=== PATIENT | female | born 1975 | race Caucasian/White ===

== ENCOUNTER 2017-12-06 19:12 | Emergency (ER) | payer OTHER, SELFPAY ==
[2017-12-06 19:38] VITALS: BP 148/81; PULSE 89; RESP 20; TEMP 36.8; O2SAT 99; BMI 19.3
[2017-12-06 19:45] LABS: Apearance,Urine Clear (Clear); Color,Urine Yellow (Yellow)
[2017-12-06 19:46] LABS: Bilirubin,Urine Negative (Negative); Blood, Urine Negative (Negative); Glucose,Urine (UA) Negative (Negative); Ketones,Urine Negative (Negative); PH,Urine 6.5 (5.0-8.5); Protein,Urine Negative (Negative)
[2017-12-06 19:47] LABS: UTC Leukocyte Esterase,Urine 1+ (Negative); UTC Nitrate,Urine Negative (Negative); Urobilinogen,Urine 0.2 EU/dl (0.2)
--- NOTE | 2017-12-06 20:07 | HMH.EDUTC ---
[facility] [place] Disposition Clinical Impression: Viral upper respiratory illness, Urinary frequency, History of UTI Disposition: Home, Self-Care Condition on Discharge: Good Instructions: DI for Viral Upper Respiratory Infection -- Adult Additional Instructions: * No sign of bacterial infection. Fluid likely remaining from ear infection. Takes times to resolve completely. no sign of infection in there though. * Monitor Temp. FU if fever develops * Urine dip unremarkable. With your history, we will send culture to rule out infection. Be sure to follow up on results. * Continue LOTS of water. Follow up immediately for worsening urine symptoms, fever, aches, back pain, Nausea, vomiting. Otherwise in 48-72 hours on your urine culture. If negative and still having symptoms, see primary care. If positive you will need an antibiotic. * sleep elevated * humidifier/vaporizer * flonase 2 sprays each nostril daily but may take 2-3 days to notice improvement with it. * Start antihistamine of your choice Referrals: Sebastian Sandhu MD [Primary Care Provider] - (In 48-72 hours for urine culture results and IMMEDIATELY for new or worsening symptoms OR no noticeable improvement over the next 5-7 days. 911 for difficulty breathing or swallowing. ) Time of Disposition: 21:13 Medical Decision Making Vital Signs: 12/06/17 19:38 Temperature 98.2 F Temperature Source Temporal Artery Scan Pulse Rate [Right] 89 Respiratory Rate 20 Blood Pressure [Right Arm] 148/81 Blood Pressure Mean [Right Arm] 103 Blood Pressure Source [Right Arm] Automatic Cuff Blood Pressure Position [Right Arm] Sitting 02 Sat by Pulse Oximetry 99 Oxygen Delivery Method Room Air - Lab Data Lab results reviewed: Yes: I reviewed the patient's lab results. Lab Results 12/06/17 19:35: Urine Color Yellow, Urine Appearance Clear, Urine pH 6.5, Ur Specific [place] 1.010, Urine Protein Negative, Urine Glucose (UA) Negative, Urine Ketones Negative, Urine Blood Negative, Urine Nitrate Negative, Urine Bilirubin Negative, Urine Urobilinogen 0.2, Ur Leukocyte Esterase 1+ A Orders (Tests/Meds): ORDERS Category Date Time Status Urine Culture Stat Micro 12/06/17 21:05 Received - Amando Inquiry Pt receiving controlled substance: No [facility] [place] HPI - General Stated complaint: Possible Respiratory Infection & UTI Time Seen by Provider: 12/06/17 20:07 Mode of Arrival: Ambulatory Source of Information: Patient Limitations: No Limitations Description of Symptoms (Recalled from Triage Doc. by RN): EAR ACHE, DYSURIA HEENT Symptoms (Recalled from RN notes): Yes Resp Symptoms (Recalled from RN notes): No Skin Symptoms (Recalled from RN notes): No MS Symptoms (Recalled from RN notes): No Functional Status (Recalled from RN notes): N - History of Present Illness Provider Complaint: c/o melody ear pressure and urinary frequency. Ear pressure ongoing. Started 2-3 weeks ago. Dx OM but not sure if one ear or both. Completed augmentin. Ongoing pressure. Hasn't taken or tried anything else. Also c/o urinary frequency x 3-5 days. Hx of UTIs. Bladder pressure at times. 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 Symptoms unchanged since then. Worried about a UTI. No treatment before arrival. - Related Data Home Medications Medication Instructions Recorded Confirmed No Known Home Medications [No 12/06/17 12/06/17 Known Home Medications] Allergies Allergy/AdvReac Type Severity Reaction Status Date / Time No Known Allergies Allergy Verified 12/06/17 19:42 - Worker's Comp Is this a Worker's Comp case?: No [facility] History I have reviewed the patient's past medical history: Yes (denies PMHx) Other Surgeries: Yes: Tubal Ligation, Other (urethral dilation 1981 and 2013) - *Social History Smoking Status: Current every day smoker Tobacco Type: cigarettes Alcohol Intake: never - Psychiatric History Expresses thoughts of
== END 2017-12-06 21:14 | disposition home or self-care (01) ==
PROVIDERS: Emergency Provider Nurse Practitioner Family; Family Provider Family Medicine; PCP Family Medicine
DX: J06.9 Acute upper respiratory infection, unspecified (principal); R30.0 Dysuria; H92.03 Otalgia, bilateral; F17.210 Nicotine dependence, cigarettes, uncomplicated
CPT/HCPCS: 81003; 87086; 87088; 87186; 99201

== ENCOUNTER 2017-12-09 15:33 | Outpatient (CLI) | payer OTHER, SELFPAY ==
[2017-12-09 16:05] VITALS: BP 133/81; PULSE 90; RESP 18; TEMP 36.7
--- NOTE | 2017-12-09 16:08 | PC.NURSE ---
1605 - INVANZ INFUSION STARTED AT THIS TIME
[2017-12-09 16:35] VITALS: BP 147/77; PULSE 85; RESP 18
== END 2017-12-09 17:00 | disposition home or self-care (01) ==
LOC: INF 15:35
PROVIDERS: PCP Family Medicine; Visit Provider Family Medicine
DX: N39.0 Urinary tract infection, site not specified (principal); Z16.24 Resistance to multiple antibiotics
CPT/HCPCS: 96365; J1335

== ENCOUNTER 2017-12-10 15:12 | Outpatient (CLI) | payer OTHER, SELFPAY ==
[2017-12-10 15:05] VITALS: BP 141/65; PULSE 75; RESP 18; TEMP 36.7; O2SAT 97
[2017-12-10 15:25] VITALS: BMI 18.8
[2017-12-10 16:12] VITALS: BP 124/76; PULSE 66; RESP 18; TEMP 36.7; O2SAT 97
== END 2017-12-10 16:16 | disposition home or self-care (01) ==
LOC: INF 15:13
PROVIDERS: Family Provider Family Medicine; PCP Family Medicine; Visit Provider Family Medicine
DX: N39.0 Urinary tract infection, site not specified (principal); Z16.24 Resistance to multiple antibiotics
CPT/HCPCS: 96365; J1335

== ENCOUNTER 2017-12-11 14:54 | Outpatient (CLI) | payer OTHER, SELFPAY ==
[2017-12-11 15:20] VITALS: BP 122/76; PULSE 90; RESP 16; TEMP 36.7; O2SAT 99; BMI 18.4
[2017-12-11 16:05] VITALS: BP 103/65; PULSE 85; RESP 18; TEMP 36.7; O2SAT 96
== END 2017-12-11 16:05 | disposition home or self-care (01) ==
PROVIDERS: Family Provider Family Medicine; PCP Family Medicine; Visit Provider Family Medicine
DX: N39.0 Urinary tract infection, site not specified (principal); Z16.24 Resistance to multiple antibiotics
CPT/HCPCS: 96365; J1335

== ENCOUNTER 2017-12-12 15:10 | Outpatient (CLI) | payer OTHER, SELFPAY ==
[2017-12-12 15:36] VITALS: BP 112/71; PULSE 84; RESP 20; TEMP 36.7; O2SAT 99
[2017-12-12 15:51] VITALS: BP 115/73; PULSE 86; RESP 20; TEMP 36.7; O2SAT 100
[2017-12-12 16:06] VITALS: BP 117/68; PULSE 84; RESP 20; O2SAT 98
[2017-12-12 16:26] VITALS: BP 116/71; PULSE 81; RESP 18; TEMP 36.7; O2SAT 98
== END 2017-12-12 16:25 | disposition home or self-care (01) ==
LOC: INF 15:31
PROVIDERS: Family Provider Family Medicine; PCP Family Medicine; Visit Provider Family Medicine
DX: N39.0 Urinary tract infection, site not specified (principal); Z16.24 Resistance to multiple antibiotics
CPT/HCPCS: 96365; J1335

== ENCOUNTER 2017-12-13 15:00 | Outpatient (CLI) | payer OTHER, SELFPAY ==
[2017-12-13 15:15] VITALS: BP 122/70; PULSE 66; RESP 20; TEMP 36.9; O2SAT 96
[2017-12-13 16:00] VITALS: BP 109/70; PULSE 66; RESP 20; TEMP 36.7; O2SAT 98
== END 2017-12-13 16:05 | disposition home or self-care (01) ==
LOC: INF 17:09
PROVIDERS: Family Provider Family Medicine; PCP Family Medicine; Visit Provider Family Medicine
DX: N39.0 Urinary tract infection, site not specified (principal); Z16.24 Resistance to multiple antibiotics
CPT/HCPCS: 96365; J1335

== ENCOUNTER 2017-12-14 14:55 | Outpatient (CLI) | payer OTHER, SELFPAY ==
[2017-12-14 15:35] VITALS: BP 109/61; PULSE 75; RESP 18; TEMP 36.5; O2SAT 98
[2017-12-14 15:50] VITALS: BP 105/87; PULSE 89; RESP 20; O2SAT 97
[2017-12-14 16:05] VITALS: BP 114/64; PULSE 85; RESP 20; O2SAT 98
[2017-12-14 16:20] VITALS: BP 111/67; PULSE 84; RESP 20; TEMP 36.6; O2SAT 98
== END 2017-12-14 16:25 | disposition home or self-care (01) ==
LOC: INF 15:01
PROVIDERS: Family Provider Family Medicine; PCP Family Medicine; Visit Provider Family Medicine
DX: N39.0 Urinary tract infection, site not specified (principal); Z16.24 Resistance to multiple antibiotics
CPT/HCPCS: 96365; J1335

== ENCOUNTER 2017-12-15 14:50 | Outpatient (CLI) | payer OTHER, SELFPAY ==
[2017-12-15 15:10] VITALS: BP 101/66; PULSE 76; RESP 18
[2017-12-15 15:45] VITALS: BP 117/69; PULSE 81; RESP 18
== END 2017-12-15 16:05 | disposition home or self-care (01) ==
LOC: INF 15:13
PROVIDERS: Visit Provider Family Medicine
DX: N39.0 Urinary tract infection, site not specified (principal); Z16.24 Resistance to multiple antibiotics
CPT/HCPCS: 96365; J1335

== ENCOUNTER → 2018-01-30 13:45 | Outpatient (CLI) | payer OTHER, SELFPAY ==
[2018-01-30 14:09] LABS: Basophils % 0.2 % (0.1-2.0); Eosinophils # 0.1 K/mm3 (0.0-0.4); Eosinophils % 1.3 % (0.1-12.0); Hematocrit 43.4 % (37.0-47.0); Hemoglobin 14.3 g/dL (12.2-16.2); Lymphocytes # 1.7 K/mm3 (0.7-4.5); Lymphocytes % 24.2 K/mm3 (10-50); Mean Corpuscular Hemoglobin 30.4 pg (27.0-31.2); Mean Platelet Volume 7.9 fl (7.4-10.4); Monocytes # 0.4 K/mm3 (0.1-1.0); Monocytes % 6.2 % (1.7-9.3); Neutrophils # 4.9 K/mm3 (1.8-7.8); Neutrophils % 68.1 % (37.0-80.0); Platelet Count 219 K/mm3 (142-424); Red Blood Count 4.72 M/mm3 (4.20-5.40); Red Cell Distribution Width 12.5 % (11.5-17.5); White Blood Count 7.1 K/mm3 (4.8-10.8)
[2018-01-30 14:49] LABS: Thyroid Stimulating Hormone 1.12 uIU/ml (0.358-3.740)
== END ==
PROVIDERS: Family Provider Family Medicine; PCP Family Medicine; Visit Provider Obstetrics & Gynecology
DX: N93.8 Other specified abnormal uterine and vaginal bleeding (principal)
CPT/HCPCS: 36415; 84443; 85025

== ENCOUNTER → 2018-02-01 09:49 | Outpatient (CLI) | payer OTHER, SELFPAY ==
--- NOTE | 2018-02-01 09:51 | US_ITS ---
US transvaginal HISTORY: ITS.REASON: Dysfunctional Uterine Bleeding ORDERING PHYSICIAN: Kumar Haile MD PATIENT AGE: 43 years COMPARISON: None FINDINGS: Uterus is retroverted measuring 8 x 5 x 6 cm with a combined endometrial thickness of 5 mm. No uterine mass evident. The left ovary is 3 x 1.7 cm containing multiple follicles largest at 1 cm. Vascularity is prominent in the left adnexa. The right ovary is 3 x 1.8 cm and contains a small follicle. There is a small amount of cul-de-sac fluid. IMPRESSION: Retroverted uterus. Small bilateral ovarian follicles with a 1 cm cyst on the left and small amount of cul-de-sac fluid
== END ==
PROVIDERS: Family Provider Family Medicine; PCP Family Medicine; Visit Provider Obstetrics & Gynecology
DX: N93.8 Other specified abnormal uterine and vaginal bleeding (principal)
CPT/HCPCS: 76830

== ENCOUNTER → 2019-02-06 12:42 | Outpatient (CLI) | payer OTHER, SELFPAY ==
--- NOTE | 2019-02-06 12:58 | XR_ITS ---
EXAM: XR cervical spine 5V HISTORY: ITS.REASON: CERVICALGIA ORDERING PHYSICIAN: Justina Ayon PATIENT AGE: 44 years COMPARISON: None FINDINGS: Normal alignment. No fracture or dislocation. No lytic or blastic change. No significant degenerative change. The disc spaces are preserved. The oblique films show normal neural foramina bilaterally. The prevertebral soft tissues are normal and the odontoid is normal. IMPRESSION: No acute finding
== END ==
LOC: RAD 12:44
PROVIDERS: PCP Nurse Practitioner Family; Visit Provider Nurse Practitioner Family
DX: M54.2 Cervicalgia (principal)
CPT/HCPCS: 72050

== ENCOUNTER 2019-02-15 08:50 | Outpatient (RCR) | payer OTHER, SELFPAY ==
--- NOTE | 2019-02-15 09:38 | HMH.PTOPEV ---
PT Outpatient Evaluation Rehab PT Outpatient Evaluation Start: 02/15/19 08:56 Freq: Status: Active Protocol: Document 02/15/19 09:21 BRE (Rec: 02/15/19 09:37 BRE [id number]) Electronically Signed By Nagi Lombardi, PT 02/15/19 09:21 Outpatient Therapy Subjective History Subjective History Patient is a 44 year old female presenting to outpatient PT with reports of chronic cervical spine pain radiating to bilateral upper trapezius mm. Pt also complians of intermittent cervicogenic headaches. Most recent cervical spine diagnostics negative. No specific mechanism of injury to report. No radicular symptoms to report. Hx of previous renal problems, tubal ligation. Chief Complaint Pain Spasms Clicks Symptom Type Throb Symptoms Aggravated By Sitting Physical Activity Prior Functional Limitations None Current Functional Limitations Reaching Lifting Desk Work/Reading Symptom Description Constant but Variable Level of pain today (0-10) 4 Pain scale - at its best (0-10) 2 Pain scale - at its worst (0-10) 7 Cervical Eval Palpation Cervical Muscles R Cervical Paraspinal L Cervical Paraspinal R Suboccipital L Suboccipital R Upper Trapezius L Upper Trapezius Cervical/Thoracic Palpation Findings Tenderness Posture Head/C-Spine Posture Sitting Position Neutral Position Head/C-Spine Posture Standing Position Neutral Position Flexibility Deficits Upper Trapezius Muscle Length (R) Moderate Tightness (L) Moderate Tightness Levaetor Scapulae Muscle Length (R) Moderate Tightness (L) Moderate Tightness Pectoralis Minor Muscle Length (R) Moderate Tightness (L) Moderate Tightness Passive Joint Mobility Cervical PIVM WNL: R OA L OA R AA L AA R C2/3 L C2/3 R C3/
== END 2019-02-15 08:55 | disposition home or self-care (01) ==
LOC: PT 08:50
PROVIDERS: Visit Provider Nurse Practitioner Family
DX: M54.2 Cervicalgia (principal); R51 Headache
CPT/HCPCS: 97010; 97014; 97110; 97163; G0283

== ENCOUNTER → 2019-12-24 16:44 | Outpatient (CLI) | payer OTHER, SELFPAY ==
--- NOTE | 2019-12-24 16:50 | MM_ITS ---
PROCEDURE: MM DIG SCREENING MAMM BI W/CAD CLINICAL INDICATION: SCREENING There is no personal or family history of breast cancer. COMPARISON: None, this is baseline screening exam TECHNIQUE: Standard CC and MLO images and 3D Tomosynthesis was obtained. R2 CAD reviewed. FINDINGS: There is a diffusely dense and heterogenic parenchymal pattern somewhat lessening the sensitivity mammography. The findings are bilateral and symmetrical. Tomosynthesis images are most helpful in this type of breast parenchyma. There is no suspicious lesion in either breast and no suspicious microcalcifications. IMPRESSION: Dense parenchymal pattern with no suspicious lesions seen BI-RAD Category: 2 Benign Finding(s) FOLLOW-UP: 1YR 1 Year Follow-up (A letter has been sent to the patient regarding results of the study.) Dictated by: Dr. James Dillard MD 12/25/2019 10:[address] James Dillard MD in [place] 12/25/2019 10:54
== END ==
PROVIDERS: PCP Family Medicine; Visit Provider Family Medicine
DX: Z12.31 Encounter for screening mammogram for malignant neoplasm of breast (principal)
CPT/HCPCS: 77063; 77067

== ENCOUNTER → 2020-03-15 09:59 | Outpatient (CLI) | payer OTHER, SELFPAY ==
[2020-03-15 10:16] LABS: Basophils % 0.5 % (0.1-2.0); Eosinophils # 0.1 K/mm3 (0.0-0.4); Eosinophils % 1.1 % (0.1-12.0); Hematocrit 46.6 % (37.0-47.0); Hemoglobin 15.1 g/dL (12.2-16.2); Lymphocytes # 1.6 K/mm3 (0.7-4.5); Lymphocytes % 26.2 % (10-50); Mean Corpuscular HGB Conc 32.4 g/dL (31.8-35.4); Mean Corpuscular Hemoglobin 30.4 pg (27.0-31.2); Mean Corpuscular Volume 93.7 fl (81-99); Mean Platelet Volume 7.7 fl (7.4-10.4); Monocytes # 0.4 K/mm3 (0.1-1.0); Monocytes % 7.1 % (1.7-9.3); Neutrophils # 3.9 K/mm3 (1.8-7.8); Platelet Count 239 K/mm3 (142-424); Red Blood Count 4.97 M/mm3 (4.20-5.40); Red Cell Distribution Width 13.5 % (11.5-17.5); White Blood Count 5.9 K/mm3 (4.8-10.8)
[2020-03-15 10:35] LABS: Chloride 104 mmol/L (98-107); Potassium 4.2 mmoL/L (3.5-5.1); Sodium 137 mmol/L (136-145)
[2020-03-15 10:38] LABS: Alanine Aminotransferase 14 U/L (12-78); Albumin Level 4.6 g/dl (3.5-5.0); Albumin/Globulin Ratio 1.6 (1.1-1.8); Alkaline Phosphatase 70 U/L (38-126); Anion Gap 9.2 mEq/L (5-15); Aspartate Amino Transferase 21 U/L (14-36); Bilirubin,Total 0.5 mg/dl (0.2-1.3); Blood Urea Nitrogen 9 mg/dl (7-17); Calcium 9.4 mg/dl (8.4-10.2); Carbon Dioxide 28 mmol/L (22.0-30.0); Chol/HDL Ratio 3.7 (1-3.5); Cholesterol 207 mg/dl (140-200); Estimated Glomerular Filt Rate 134 ml/min (>60); GFR (African American) 162 ML/MIN (>60); Globulin 2.9 g/dL (1.3-3.2); Glucose 101 mg/dl (74-100); HDL Cholesterol 56 mg/dl (40-60); Total Protein,Serum 7.5 g/dl (6.3-8.2); Triglycerides 106 mg/dl (30-150); VLDL Cholesterol 21 mg/dL (0-40)
[2020-03-15 10:49] LABS: Direct LDL Cholesterol 153.01 mg/dL (100-129)
[2020-03-15 10:54] LABS: Triiodothryronine (T3) Uptake 31 % (23.5-40.5)
[2020-03-15 10:55] LABS: Free Thyroxine Index 2.2 ug/dL (5.93-13.13); T4 (Thyroxine) 7.2 ug/dl (5.53-11.0)
[2020-03-15 11:08] LABS: Thyroid Stimulating Hormone 0.94 uIU/mL (0.465-4.68)
== END ==
PROVIDERS: Visit Provider Nurse Practitioner Obstetrics & Gynecology
DX: Z01.419 Encounter for gynecological examination (general) (routine) without abnormal findings (principal); R53.82 Chronic fatigue, unspecified
CPT/HCPCS: 36415; 80053; 80061; 84436; 84443; 84479; 85025

== ENCOUNTER 2020-03-30 16:57 | Emergency (ER) | payer OTHER, SELFPAY ==
[2020-03-30 17:10] VITALS: BP 132/83; PULSE 93; RESP 18; TEMP 37; O2SAT 98; BMI 18.3
[2020-03-30 17:12] LABS: Apearance,Urine Clear (Clear); Bilirubin,Urine Negative (Negative); Blood, Urine Trace (Negative); Color,Urine Yellow (Yellow); Glucose,Urine (UA) Negative (Negative); Ketones,Urine Negative (Negative); Protein,Urine Negative (Negative); UTC Leukocyte Esterase,Urine 1+ (Negative); UTC Nitrate,Urine Negative (Negative); Urobilinogen,Urine 0.2 EU/dl (0.2)
--- NOTE | 2020-03-30 17:13 | HMH.EDUTC ---
[facility] [place] Disposition Clinical Impression: UTI (urinary tract infection) Qualifiers: Urinary tract infection type: site unspecified Hematuria presence: with hematuria Qualified Code(s): N39.0 - Urinary tract infection, site not specified Disposition: Home, Self-Care Condition on Discharge: Good Instructions: Urinary Tract Infection Additional Instructions: Drink plenty of fluids. Take tylenol or ibuprofen for pain or fever. Take the medications as directed. Follow up with your regular doctor. GO TO THE ER FOR ANY WORSENING SYMPTOMS The pyridium will make your urine turn orange, this is an expected side effect. It will stain your clothes if it comes into contact with them. Prescriptions: Ondansetron [Zofran 4mg ODT] 4 mg PO Q8HP PRN #9 tab.rapdis PRN Reason: Nausea [id number] Ciprofloxacin HCl [Cipro 500mg Tab] 500 mg PO BID 10 Days #20 tab Transmission Status: [facility] Phenazopyridine HCl [Pyridium 200mg Tablet] 200 pow PO TID #6 tab Transmission Status[facility] Referrals: Sebastian Sandhu MD [Primary Care Provider] - Time of Disposition: 17:21 Medical Decision Making - Medical Records Medical records reviewed: No: I reviewed the patient's medical records. - Amando Inquiry Pt receiving controlled substance: No Vital Signs: 03/30/20 17:10 03/30/20 17:22 Temperature 98.6 F 98.6 F Temperature Source Oral Pulse Rate 93 H Pulse Rate [Right Brachial] 93 H Respiratory Rate 18 18 Blood Pressure 132/83 Blood Pressure [Right Arm] 132/83 Blood Pressure Mean [Right Arm] 99 Blood Pressure Source [Right Arm] Automatic Cuff Blood Pressure Position [Right Arm] Sitting 02 Sat by Pulse Oximetry 98 Oxygen Delivery Method Room Air - Lab Data Lab results reviewed: Yes: I reviewed the patient's lab results. Lab Results 03/30/20 17:11: Urine Color Yellow, Urine Appearance Clear, Urine pH 6.0, Ur Specific [place] 1.010, Urine Protein Negative, Urine Glucose (UA) Negative, Urine Ketones Negative, Urine Blood Trace, Urine Nitrate Negative, Urine Bilirubin Negative, Urine Urobilinogen 0.2, Ur Leukocyte Esterase 1+ A Orders (Tests/Meds): ORDERS Category Date Time Status Urine Culture Stat Micro 03/30/20 17:05 Received [facility] [place] HPI - General Stated complaint: possible UTI Time Seen by Provider: 03/30/20 17:13 - History of Present Illness Provider Complaint: She c/o low back pain, burning while urinating, and foul smelling urine since last night. She gets UTIs frequently. She is follow by Dr. Wood for urology. - Related Data Previous Rx's Medication Instructions Recorded Ciprofloxacin HCl [Cipro 500mg 500 mg PO BID 10 Days #20 tab 03/30/20 Tab] Ondansetron [Zofran 4mg ODT] 4 mg PO Q8HP PRN #9 tab.rapdis 03/30/20 Phenazopyridine HCl [Pyridium 200 pow PO TID #6 tab 03/30/20 200mg Tablet] Allergies Allergy/AdvReac Type Severity Reaction Status Date / Time No Known Allergies Allergy Verified 03/12/20 14:25 [facility] History - Hepatitis A Screen Attestation statement:: This patient has been screened for Hepatitis A risk factors. I have reviewed the patient's past medical history: Yes Medical History: Reports:: Cancer, Diabetes Mellitus Type 1, Diabetes Mellitus Type 2, Internal Pacemaker, MRSA, Seizures, Urinary Tract Infection Other Medical History: Reports: Blood Transfusion Reaction, Other Comment: UTI's. Prolapsed bladder Laterality Cases: Bilateral: Other Other Surgeries: Yes: Pacemaker, Tubal Ligation, Other Amputation: No Fractures: No Comment: BTL--07/2001. Urethral Dilation--as child and 05/2014 - Social History Smoking Status: Current every day smoker Tobacco Type: cigarettes # Packs/Day (cigarettes): 1 Alcohol Intake: never Substance Use Type: denies use Occupational Status: employed Housing: house Household Members: spouse
[2020-03-30 17:22] VITALS: BP 132/83; PULSE 93; RESP 18; TEMP 37; O2SAT 98
== END 2020-03-30 17:25 | disposition home or self-care (01) ==
PROVIDERS: Emergency Provider Nurse Practitioner Family; PCP Family Medicine
DX: N30.00 Acute cystitis without hematuria (principal); E78.5 Hyperlipidemia, unspecified; E11.9 Type 2 diabetes mellitus without complications; F17.210 Nicotine dependence, cigarettes, uncomplicated
CPT/HCPCS: 81003; 87086; 87088; 87186; 99201

== ENCOUNTER → 2020-05-23 11:55 | Outpatient (CLI) | payer OTHER, SELFPAY ==
[2020-05-23 14:39] LABS: Coronavirus 19 IgG Antibody Negative (Negative); Coronavirus 19 IgM Antibody Negative (Negative)
== END ==
PROVIDERS: Visit Provider Family Medicine
DX: Z03.818 Encounter for observation for suspected exposure to other biological agents ruled out (principal)
CPT/HCPCS: 36415; 86328

== ENCOUNTER → 2020-06-19 14:49 | Outpatient (CLI) | payer OTHER, SELFPAY ==
[2020-06-19 14:51] LABS: Adenovirus F 40/41, stool Not Detected (NotDetected); Astrovirus Not Detected (NotDetected); Campylobacter Not Detected (NotDetected); Clostridium Difficile A/B, PCR Not Detected (NotDetected); Cryptosporidium Not Detected (NotDetected); Cyclospora Cayetanesis Not Detected (NotDetected); Entamoeba histolytica Not Detected (NotDetected); Enteroaggregative E coli Not Detected (NotDetected); Enterotoxigenic E coli Not Detected (NotDetected); Giardia lamblia Not Detected (NotDetected); Norovirus Not Detected (NotDetected); Plesimonas Shigalloides, PCR Not Detected (NotDetected); Rotavirus A Not Detected (NotDetected); Salmonella, PCR Not Detected (NotDetected); Sapovirus Not Detected (NotDetected); Shiga-like toxin E coli Not Detected (NotDetected); Shigella Enterovasive E coli Not Detected (NotDetected); Vibrio Cholerae Not Detected (NotDetected); Vibrio, PCR Not Detected (NotDetected); Yersinia Entercolitica, PCR Not Detected (NotDetected)
[2020-06-19 18:33] LABS: Enteropathogenic E coli Detected (NotDetected)
== END ==
LOC: LAB.DROPOF 14:50
PROVIDERS: Visit Provider Nurse Practitioner Family
DX: R19.7 Diarrhea, unspecified (principal); A04.0 Enteropathogenic Escherichia coli infection
CPT/HCPCS: 87507

== ENCOUNTER → 2021-01-12 10:15 | Outpatient (CLI) | payer OTHER, SELFPAY ==
--- NOTE | 2021-01-12 10:15 | MM_ITS ---
PROCEDURE: MM DIG SCREENING MAMM BI W/CAD Digital Breast Tomosynthesis Included CLINICAL INDICATION: screening xmg There is no personal or family history of breast cancer. COMPARISON: MG MM DIG SCREENING MAMM BI W/CAD from 12/24/2019 TECHNIQUE: Standard CC and MLO images and 3D Tomosynthesis was obtained. R2 CAD reviewed. FINDINGS: There is a diffusely dense and heterogenic parenchymal pattern which lessens the sensitivity of mammography. Donnie images are most helpful and this type of dense breast parenchyma. Findings are bilateral and symmetrical. There are no CAD markings. Her on examining donnie images there is a possible developing asymmetric nodular lesion lower outer quadrant left breast only definitely seen on the CC donnie images. Recommend the patient return for spot compression views of the area marked on the film and ultrasound for additional evaluation. There are no suspicious microcalcifications. IMPRESSION: Diffusely dense and heterogenic parenchymal pattern with possible developing nodular density lower outer left breast BI-RAD Category: 0 Need Additional Imaging Evaluation FOLLOW-UP: IMM Immediate Follow-up Recommended (A letter has been sent to the patient regarding results of the study.) Dictated by: Dr. James Dillard MD 01/18/2021 10:04 Dr. James Dillard MD in [place] 01/18/2021 10:04
== END ==
PROVIDERS: PCP Family Medicine; Visit Provider Nurse Practitioner Obstetrics & Gynecology
DX: Z12.31 Encounter for screening mammogram for malignant neoplasm of breast (principal)
CPT/HCPCS: 77063; 77067

== ENCOUNTER → 2021-02-05 12:46 | Outpatient (CLI) | payer OTHER, SELFPAY ==
--- NOTE | 2021-02-05 12:46 | MM_ITS ---
PROCEDURE: MM DIG MAMM DX UNILAT LT CAD Digital Breast Tomosynthesis Included CLINICAL INDICATION: abnormal xmg COMPARISON: MG MM DIG SCREENING MAMM BI W/CAD from 12/24/2019 MG MM DIG SCREENING MAMM BI W/CAD from 01/12/2021 TECHNIQUE: Standard CC and MLO images and 3D Tomosynthesis was obtained. R2 CAD reviewed. FINDINGS: The breast is composed of heterogeneously dense fibroglandular tissue. Previously noted asymmetric density in the left lower outer quadrant is not well demonstrated on the spot compression images. No other focal discrete masses are noted. Corresponding ultrasound demonstrates cysts in the left breast IMPRESSION: Probably benign finding. BI-RAD Category: 3 Probably Benign Finding Short Term Follow-up FOLLOW-UP: Diagnostic mammogram and ultrasound of the left breast. (A letter has been sent to the patient regarding results of the study.) Dictated by: Yudi Butts 02/05/2021 17:46 Yudi Butts in [place] 02/05/2021 17:46
--- NOTE | 2021-02-05 12:46 | US_ITS ---
PROCEDURE: US BREAST LT COMPLETE CLINICAL INDICATION: abnormal xmg COMPARISON: Diagnostic mammogram of the same date and screening mammogram of january 12, 2021. FINDINGS: Multiple anechoic lesions are noted in the left breast at 2 o'clock, 3 o'clock, and 4 o'clock positions, largest measuring up to 0.8 centimeters. No evidence of internal vascularity or internal echogenicity is noted. No other suspicious findings or mass lesions. For left axillary lymph nodes are noted measuring up to 1.5 x 0.9 centimeters. Normal morphology is noted. IMPRESSION: Multiples anechoic lesions in the left breast measuring up to 8 millimeters, likely represent cysts. Please see diagnostic mammogram report of the same date for further recommendations. Dictated by: Yudi Butts 02/05/2021 17:44 Yudi Butts in [place] 02/05/2021 17:44
== END ==
PROVIDERS: PCP Family Medicine; Visit Provider Nurse Practitioner Obstetrics & Gynecology
DX: R92.8 Other abnormal and inconclusive findings on diagnostic imaging of breast (principal)
CPT/HCPCS: 76641; 77061; 77065; G0279

== ENCOUNTER → 2021-03-25 07:21 | Outpatient (CLI) | payer OTHER, SELFPAY ==
[2021-03-25 08:03] LABS: Basophils % 0.6 % (0.1-2.0); Eosinophils # 0.1 K/mm3 (0.0-0.4); Eosinophils % 1.3 % (0.1-12.0); Hematocrit 44.6 % (37.0-47.0); Lymphocytes # 1.8 K/mm3 (0.7-4.5); Lymphocytes % 27.4 % (10-50); Mean Corpuscular HGB Conc 33.7 g/dL (31.8-35.4); Mean Corpuscular Hemoglobin 30.9 pg (27.0-31.2); Mean Corpuscular Volume 91.7 fl (81-99); Mean Platelet Volume 7.9 fl (7.4-10.4); Monocytes # 0.5 K/mm3 (0.1-1.0); Monocytes % 6.9 % (1.7-9.3); Neutrophils # 4.2 K/mm3 (1.8-7.8); Neutrophils % 63.8 % (37.0-80.0); Platelet Count 241 K/mm3 (142-424); Red Blood Count 4.87 M/mm3 (4.20-5.40); White Blood Count 6.6 K/mm3 (4.8-10.8)
[2021-03-25 08:15] LABS: Alanine Aminotransferase 14 U/L (12-78); Albumin Level 4.6 g/dl (3.5-5.0); Albumin/Globulin Ratio 1.6 (1.1-1.8); Alkaline Phosphatase 79 U/L (38-126); Anion Gap 11.5 mEq/L (5-15); Aspartate Amino Transferase 23 U/L (14-36); Bilirubin,Total 0.5 mg/dl (0.2-1.3); Blood Urea Nitrogen 9 mg/dl (7-17); Calcium 9.1 mg/dl (8.4-10.2); Carbon Dioxide 26 mmol/L (22.0-30.0); Chloride 107 mmol/L (98-107); Chol/HDL Ratio 4.6 (1-3.5); Cholesterol 228 mg/dl (140-200); Estimated Glomerular Filt Rate 133 ml/min (>60); GFR (African American) 161 ML/MIN (>60); Globulin 2.8 g/dL (1.3-3.2); Glucose 102 mg/dl (74-100); HDL Cholesterol 50 mg/dl (40-60); Potassium 4.5 mmoL/L (3.5-5.1); Sodium 140 mmol/L (136-145); Total Protein,Serum 7.4 g/dl (6.3-8.2); Triglycerides 86 mg/dl (30-150); VLDL Cholesterol 17 mg/dL (0-40)
[2021-03-25 08:26] LABS: Direct LDL Cholesterol 146.17 mg/dL (100-129)
[2021-03-25 08:32] LABS: 25-OH Vitamin D, Total 25.5 ng/mL (30-100)
== END ==
LOC: LAB 07:21
PROVIDERS: Visit Provider Nurse Practitioner Obstetrics & Gynecology
DX: Z01.419 Encounter for gynecological examination (general) (routine) without abnormal findings (principal); E55.9 Vitamin D deficiency, unspecified
CPT/HCPCS: 36415; 80053; 80061; 82306; 85025

== ENCOUNTER 2021-08-13 13:35 | Emergency (ER) | payer OTHER, SELFPAY ==
[2021-08-13 14:17] VITALS: BP 148/77; PULSE 105; RESP 22; TEMP 36.7; O2SAT 98; BMI 19.5
[2021-08-13 14:23] LABS: Apearance,Urine Clear (Clear); Color,Urine Dark Yellow (Yellow); PH,Urine 8.5 (5.0-8.5)
[2021-08-13 14:24] LABS: Bilirubin,Urine Negative (Negative); Blood, Urine Negative (Negative); Glucose,Urine (UA) Negative (Negative); Ketones,Urine Negative (Negative); Protein,Urine Negative (Negative); UTC Leukocyte Esterase,Urine Negative (Negative); UTC Nitrate,Urine Negative (Negative); Urobilinogen,Urine 0.2 EU/dl (0.2)
--- NOTE | 2021-08-13 14:27 | HMH.EDUTC ---
[facility] [place] Disposition Clinical Impression: UTI (urinary tract infection) Qualifiers: Urinary tract infection type: site unspecified Hematuria presence: without hematuria Qualified Code(s): N39.0 - Urinary tract infection, site not specified Disposition: Home, Self-Care Condition on Discharge: Good Instructions: DI for Urinary Tract Infection (UTI), Cephalexin Additional Instructions: *Increase fluids. Water not Soda or Tea *Start antibiotic immediately and be sure to take as ordered for the FULL length of time although you should start to see improvement over the next 48 hours *Pyridium as needed Remember this medication will turn your urine [place]. This is normal but it will stain what ever it gets on *You should not use Pyridium for more than 48 hours. If so , follow up with your primary physician to review urine culture and ensure that antibiotic is adequate for infection *Be SURE to follow up anytime for new or worsening symptoms with your family doctor. AND in 48 hours for urine culture results with your family doctor, if you do not have a doctor then you may call back to the [facility] for urine culture results and further treatment. We do recommend that you choose and establish care with a Primary Care Physician. AND follow up with them in 10-14 days to repeat UA to ensure infection is resolved and blood no longer present *Be sure to let your PCP know that we sent urine cultures from the [facility] so they can follow up to ensure that you area the on the correct antibiotic Call your doctor office and make appointment for 48 hours (2 days from today) to follow up and get the results of your urine culture and further treatment Prescriptions: cephALEXin [cephALEXin 500mg capsule*] 500 mg PO BID #20 cap Transmission Status: Pending to [facility] Phenazopyridine HCl [Pyridium 200mg Tablet] 200 pow PO TID #6 tab Transmission Status: Pending to [facility] Referrals: Sebastian Sandhu MD [Primary Care Provider] - As needed Time of Disposition: 14:31 Medical Decision Making - Amando Inquiry Pt receiving controlled substance: No Amando was queried for this patient: No Vital Signs: 08/13/21 14:17 Temperature 98.1 F Temperature Source Oral Pulse Rate [Right Brachial] 105 H Respiratory Rate 22 Blood Pressure [Right Arm] 148/77 H Blood Pressure Mean [Right Arm] 100 Blood Pressure Source [Right Arm] Automatic Cuff Blood Pressure Position [Right Arm] Sitting 02 Sat by Pulse Oximetry 98 - Lab Data Lab results reviewed: Yes: I reviewed the patient's lab results. Lab Results 08/13/21 13:50: Urine Color Dark yellow, Urine Appearance Clear, Urine pH 8.5, Ur Specific [place] 1.020, Urine Protein Negative, Urine Glucose (UA) Negative, Urine Ketones Negative, Urine Blood Negative, Urine Nitrate Negative, Urine Bilirubin Negative, Urine Urobilinogen 0.2, Ur Leukocyte Esterase Negative [facility] [place] HPI - General Stated complaint: possible UTI Time Seen by Provider: 08/13/21 14:28 Mode of Arrival: Family Vehicle Description of Symptoms (Recalled from Triage Doc. by RN): PT STATES THAT SHE WOKE UP YESTERDAY MORNING WITH LOWER BACK AND ABD PAIN ALONG WITH PRESSURE ON BLADDER WITH FREQUENT AND BURNING WITH URINATION HEENT Symptoms (Recalled from RN notes): No Resp Symptoms (Recalled from RN notes): No Skin Symptoms (Recalled from RN notes): No MS Symptoms (Recalled from RN notes): No Functional Status (Recalled from RN notes): WNL - History of Present Illness Provider Complaint: Patient states that she use to get frequent UTI's States that she started yesterday with achy like feeling in her lower back, feeling of urgency and frequency and pressure like feeling at times when she urinates State that she is not had any fever but feels like it did when she had UTI - Related Data Previous Rx's Medication Instructions Recorded sulfamethoxazole 800 1 tab PO BID 7 Days #14 tab 05/22/21 mg-trimethoprim 160 mg tablet Phenazopyri
[2021-08-13 14:37] VITALS: BP 148/77; PULSE 105; RESP 22; TEMP 36.7; O2SAT 98
== END 2021-08-13 14:41 | disposition home or self-care (01) ==
PROVIDERS: Emergency Provider Nurse Practitioner; PCP Family Medicine
DX: N39.0 Urinary tract infection, site not specified (principal)
CPT/HCPCS: 81003; 87086; 87088; 87186; 99202; G0463

== ENCOUNTER 2021-12-23 21:19 | Emergency (ER) | payer OTHER, SELFPAY ==
--- NOTE | 2021-12-23 21:18 | ECG_ITS ---
APPROVED REPORT Exam: Resting ECG HR:90 bpm ECG Measurements Heart Rate 90 AXES MA 145 P 69 QRSd 89 QRS 88 QT 347 T 80 QTc 394 Conclusion SINUS RHYTHM NORMAL ECG UNCONFIRMED REPORT Electronically signed by : Sebastian Huerta MD 12/24/2021 20:23:04
[2021-12-23 21:20] VITALS: BP 170/96; PULSE 91; RESP 16; TEMP 36.7; O2SAT 97; BMI 19.7
--- NOTE | 2021-12-23 21:27 | XR_ITS ---
PROCEDURE INFORMATION: Exam: XR Chest Exam date and time: 12/23/2021 9:27 PM Age: 46 years old Clinical indication: Sternal or substernal pain; Additional info: Chest pain, smoker, no chest surgeries. TECHNIQUE: Imaging protocol: XR of the chest. Views: 2 views. COMPARISON: CR [id number] XR cervical spine 5V 02/06/2019 1:11 PM FINDINGS: Lungs: Unremarkable. No consolidation. Pleural spaces: Unremarkable. No pleural effusion. No pneumothorax. Heart/Mediastinum: Unremarkable. No cardiomegaly. Bones/joints: Unremarkable. IMPRESSION: No acute findings.
[2021-12-23 21:43] LABS: Basophils % 0.2 % (0.1-2.0); Eosinophils # 0.1 K/mm3 (0.0-0.4); Eosinophils % 0.9 % (0.1-12.0); Hematocrit 45.4 % (37.0-47.0); Hemoglobin 15.2 g/dL (12.2-16.2); Lymphocytes # 2.3 K/mm3 (0.7-4.5); Lymphocytes % 32.9 % (10-50); Mean Corpuscular HGB Conc 33.4 g/dL (31.8-35.4); Mean Corpuscular Hemoglobin 30.1 pg (27.0-31.2); Mean Corpuscular Volume 90.3 fl (81-99); Mean Platelet Volume 7.8 fl (7.4-10.4); Monocytes # 0.4 K/mm3 (0.1-1.0); Monocytes % 6.3 % (1.7-9.3); Neutrophils # 4.1 K/mm3 (1.8-7.8); Neutrophils % 59.7 % (37.0-80.0); Platelet Count 262 K/mm3 (142-424); Red Blood Count 5.03 M/mm3 (4.20-5.40); Red Cell Distribution Width 12.8 % (11.5-17.5); White Blood Count 6.9 K/mm3 (4.8-10.8)
[2021-12-23 21:50] LABS: Anion Gap 11.7 mEq/L (5-15); Blood Urea Nitrogen 8 mg/dl (7-17); Calcium 9.4 mg/dl (8.4-10.2); Carbon Dioxide 33 mmol/L (22.0-30.0); Chloride 101 mmol/L (98-107); Creatinine Clearance Estimated 117 mL/min (50-200); Estimated Glomerular Filt Rate 133 ml/min (>60); GFR (African American) 161 ML/MIN (>60); Glucose 107 mg/dl (74-100); Potassium 3.7 mmoL/L (3.5-5.1); Sodium 142 mmol/L (136-145)
[2021-12-23 21:51] LABS: HCG Qualitative, Serum Negative (Negative)
--- NOTE | 2021-12-23 21:51 | HMH.EDCP ---
ED Disposition Clinical Impression: Atypical chest pain, Elevated BP without diagnosis of hypertension Disposition: Home, Self-Care Condition on Discharge: Good Instructions: DI for Atypical Chest Pain Additional Instructions: monitor bp and call pcp for follow up Referrals: Chiquita Palomo MD [Primary Care Provider] - - Critical Care Critical Care Time: No Attestation: On 12/23/21, the high probability of a clinically significant, sudden or life threatening deterioration of the following system(s) required my full and direct attention, intervention and personal management. The time I documented below is in addition to time spent performing reported procedures but includes the following listed in this critical care notation. Medical Decision Making - Medical Records Medical records reviewed: Yes: I reviewed the patient's medical records. - Amando Inquiry Pt receiving controlled substance: No Vital Signs: 12/23/21 21:20 Temperature 98.0 F Temperature Source Oral Pulse Rate [Right Radial] 91 H Respiratory Rate 16 Blood Pressure [Right Arm] 170/96 H Blood Pressure Mean [Right Arm] 120 Blood Pressure Source [Right Arm] Automatic Cuff Blood Pressure Position [Right Arm] Sitting 02 Sat by Pulse Oximetry 97 Oxygen Delivery Method Room Air - Lab Data Lab results reviewed: Yes: I reviewed the patient's lab results. Lab Results 12/23/21 21:20: WBC 6.9, RBC 5.03, Hgb 15.2, Hct 45.4, MCV 90.3, MCH 30.1, MCHC 33.4, RDW 12.8, Plt Count 262, MPV 7.8, Neut % (Auto) 59.7, Lymph % (Auto) 32.9, [place] % (Auto) 6.3, Eos % (Auto) 0.9, Baso % (Auto) 0.2, Neut # (Auto) 4.1, Lymph # (Auto) 2.3, [place] # (Auto) 0.4, Eos # (Auto) 0.1, Baso # (Auto) 0.0, ESR 6 12/23/21 21:20: Sodium 142, Potassium 3.7, Chloride 101, Carbon Dioxide 33 H, Anion Gap 11.7, BUN 8, Creatinine 0.50 L, Estimated Creat Clear 117, Estimated GFR 133, Est GFR ( Amer) 161, Glucose 107 H, Calcium 9.4, Troponin I < 0.01, C-Reactive Protein 0.4, Procalcitonin < 0.030 12/23/21 21:20: Serum HCG, Qual Negative 12/23/21 21:20: Total Bilirubin 0.4, Direct Bilirubin 0.3, Conjugated Bilirubin 0.0, Indirect Bilirubin 0.1, Unconjugated Bilirubin 0.1, AST 38 H, ALT 28, Alkaline Phosphatase 98, Total Protein 8.5 H, Albumin 4.9 Result diagrams: 12/23/21 21:20 12/23/21 21:20 Orders (Tests/Meds): ED MEDICATIONS Generic Name Dose Route Start Last Admin Trade Name Freq PRN Reason Stop Dose Admin Lactated Ringer's 1,000 mls @ 999 mls/hr 12/23/21 21:30 12/23/21 22:08 Lactated Ringer's 1000 Ml Bag IV 12/23/21 22:30 999 mls/hr .Q1H1M APRIL Administration Sodium Chloride 8 ml 12/23/21 22:41 Sodium Chloride 0.9% 10ml Vial IV 01/22/22 22:40 NEEDED PRN dilute pepcid Discontinued Medications Generic Name Dose Route Start Last Admin Trade Name Freq PRN Reason Stop Dose Admin Famotidine 20 mg 12/23/21 22:41 12/23/21 22:44 Famotidine 20mg/2ml Vial IV 12/23/21 22:42 20 mg ONCE ONE Administration Iopamidol 70 ml 12/23/21 22:18 12/23/21 22:19 Iopamidol-370 (76%);100ml Bottle IV 12/23/21 22:19 70 ml ONCE ONE Administration Ketorolac Tromethamine 30 mg 12/23/21 21:30 12/23/21 22:08 Ketorolac 30mg/Ml Vial IV 12/23/21 21:31 30 mg ONCE ONE Administration Methylprednisolone Sodium Succinate 125 mg 12/23/21 21:30 12/23/21 22:08 Methylprednisolone Sod Succ 125mg Vial IV 12/23/21 21:31 125 mg ONCE ONE Administration Metoclopramide HCl 10 mg 12/23/21 22:41 12/23/21 22:44 Metoclopramide Hcl 10mg/2ml Vial IVP 12/23/21 22:42 10 mg ONCE ONE Administration Sodium Chloride 10 ml 12/23/21 22:18 12/23/21 22:19 Sodium Chloride 0.9% 10ml Syr (Rad Only) IV 12/23/21 22:19 10 ml ONCE ONE Administration Sodium Chloride 50 ml 12/23/21 22:18 12/23/21 22:19 0.9 % Sodium Chloride 50 Ml Vial IV 12/23/21 22:19 50 ml ONCE ONE Administration ORDERS Category Date Time Status Troponin I Q
--- NOTE | 2021-12-23 21:53 | CT_ITS ---
PROCEDURE INFORMATION: Exam: CTA Chest With Contrast Exam date and time: 12/23/2021 9:53 PM Age: 46 years old Clinical indication: Shortness of breath; Additional info: SOB TECHNIQUE: Imaging protocol: Computed tomographic angiography of the chest with contrast. 3D rendering (Not supervised by radiologist): MIP and/or 3D reconstructed images were created by the technologist. Radiation optimization: All CT scans at this facility use at least one of these dose optimization techniques: automated exposure control; mA and/or kV adjustment per patient size (includes targeted exams where dose is matched to clinical indication); or iterative reconstruction. Contrast material: ISOVUE; Contrast volume: 70 ml; Contrast route: INTRAVENOUS (IV); COMPARISON: CR XR CHEST 2V 12/23/2021 9:29 PM FINDINGS: Pulmonary arteries: Normal. No pulmonary emboli. Aorta: Unremarkable. No aortic aneurysm. No aortic dissection. Lungs: Unremarkable. No consolidation. No masses. Pleural spaces: Unremarkable. No pneumothorax. No pleural effusion. Heart: Unremarkable. No cardiomegaly. No pericardial effusion. Lymph nodes: Unremarkable. No enlarged lymph nodes. Bones/joints: Unremarkable. No acute fracture. Soft tissues: Unremarkable. IMPRESSION: 1. No acute findings. 2. No CT evidence of pulmonary embolus.
[2021-12-23 21:55] LABS: C-Reactive Protein 0.4 mg/L (0-4)
[2021-12-23 22:04] LABS: Alanine Aminotransferase 28 U/L (12-78); Aspartate Amino Transferase 38 U/L (14-36); Bilirubin,Unconjugated 0.1 mg/dL (0.0-1.1); Troponin I < 0.01 ng/ml (0.00-0.034)
[2021-12-23 22:05] LABS: Albumin Level 4.9 g/dl (3.5-5.0); Alkaline Phosphatase 98 U/L (38-126); Bilirubin,Direct 0.3 mg/dl (0.0-0.4); Bilirubin,Indirect 0.1 mg/dL (0.0-0.9); Bilirubin,Total 0.4 mg/dl (0.2-1.3); Total Protein,Serum 8.5 g/dl (6.3-8.2)
[2021-12-23 22:14] LABS: Procalcitonin < 0.030 ng/mL (0.0-2.0)
[2021-12-23 22:23] LABS: Erythrocyte Sedimentation Rate 6 mm/hr (0-20)
[2021-12-23 23:11] VITALS: BP 147/94; PULSE 85; RESP 16; TEMP 36.6; O2SAT 97
== END 2021-12-23 23:16 | disposition home or self-care (01) ==
PROVIDERS: Emergency Provider Emergency Medicine; PCP Family Medicine
DX: R07.89 Other chest pain (principal); R03.0 Elevated blood-pressure reading, without diagnosis of hypertension; U07.1 COVID-19; E11.9 Type 2 diabetes mellitus without complications; F17.210 Nicotine dependence, cigarettes, uncomplicated; Z79.899 Other long term (current) drug therapy
CPT/HCPCS: 71046; 71275; 80048; 80076; 84145; 84484; 84703; 85025; 85651; 86140; 93005; 96365; 96375; 99282; 99285; Q9967

== ENCOUNTER → 2023-04-07 14:20 | Outpatient (CLI) | payer OTHER, SELFPAY ==
[2023-04-07 14:26] LABS: Microscopic, Urine URINE MICROSCOPIC (MICROSCOPIC)
[2023-04-07 14:51] LABS: Appearance,Urine CLEAR (Clear); Bilirubin,Urine Negative (Negative); Blood, Urine 2+ (Negative); Color,Urine YELLOW (Yellow); Glucose,Urine (UA) Negative (Negative); Ketones,Urine Negative (Negative); Leukocyte Esterase,Urine 2+ (Negative); Nitrate,Urine Negative (Negative); PH,Urine 6.5 (5.0-8.5); Protein,Urine Negative (Negative); Specific Gravity, Urine 1.015 (1.005-1.030); Urobilinogen,Urine 0.2 EU/dl (0.2)
[2023-04-07 16:34] LABS: Bacteria,Urine Trace /lpf
== END ==
LOC: LAB 14:22
PROVIDERS: PCP Internal Medicine Adolescent Medicine; Visit Provider Nurse Practitioner Family
DX: R30.0 Dysuria (principal); B96.20 Unspecified Escherichia coli [E. coli] as the cause of diseases classified elsewhere
CPT/HCPCS: 81001; 87086; 87088; 87186

== ENCOUNTER 2023-06-05 10:11 | Emergency (ER) | payer OTHER, SELFPAY ==
[2023-06-05 10:12] VITALS: BP 141/90; PULSE 107; RESP 18; TEMP 36.8; O2SAT 97; BMI 19.5
--- NOTE | 2023-06-05 10:25 | EXP.UTC ---
Discharge Plan Disposition Patient Disposition: Home, Self-Care Condition: Good Prescriptions Prescriptions: New phenazopyridine [Pyridium] 200 mg tablet 200 mg PO Q8H 2 Days Qty: 6 0RF nitrofurantoin monohyd/m-cryst [Macrobid] 100 mg Capsule 100 mg PO BID Qty: 10 0RF Rx Instructions: must administer with a meal/food No Action sulfamethoxazole-trimethoprim [Bactrim DS] 800-160 mg tablet 1 tab PO BID 7 Days Qty: 14 0RF phenazopyridine 200 MG tablet 200 pow PO TID Qty: 6 0RF cephalexin 500 MG capsule 500 mg PO BID Qty: 20 0RF Referrals Follow up/Referrals: Ladan Delcid APRN [Primary Care Provider] - See instructions Activity Restrictions/Add. Instructions Additional Instructions/Restrictions: Drink plenty of fluids. Take tylenol or ibuprofen for pain or fever. Take the medications as directed. Follow up with your regular doctor. GO TO THE ER FOR ANY WORSENING SYMPTOMS The pyridium will make your urine turn orange, this is an expected side effect. It will stain your clothes if it comes into contact with them. We will culture the urine. That will tell what bacteria is causing your infection and which antibiotics will treat it best. Sometimes the first antibiotic we prescribe turns out to not work against different bacteria. So, make sure you follow up within 3 days if you are not getting better. Clinical Impressions Clinical Impression: UTI (urinary tract infection) Instructions Patient Instructions: Urinary Tract Infection, DI for Urinary Tract Infection (UTI) Discharge ED Provider: Jose Alejandro Perez [facility] General Stated complaint: burning,frequent urination Time Seen by Provider: 06/05/23 10:25 History of Present Illness Provider Complaint: She states that for the past 2 days she has had low back pain, dysuria and urinary frequency. Related Data Previous Rx's Medication Instructions Recorded sulfamethoxazole 800 1 tab PO BID 7 days #14 tabs 05/22/21 mg-trimethoprim 160 mg tablet (Bactrim DS) cephalexin 500 mg capsule 500 mg PO BID #20 caps 08/13/21 phenazopyridine 200 mg tablet 200 pow PO TID #6 tabs 08/13/21 nitrofurantoin 100 mg PO BID #10 caps 06/05/23 monohydrate/macrocrystals 100 mg capsule (Macrobid) phenazopyridine 200 mg tablet 200 mg PO Q8H 2 days #6 tabs 06/05/23 (Pyridium) Allergies Allergy/AdvReac Type Severity Reaction Status Date / Time No Known Allergies Allergy Verified 05/22/21 11:01 [facility] Disclaimer: The information contained in this section may have been updated after the patient was seen, as this information can be updated by other users. Social History Smoking Status: Current every day smoker tobacco type: cigarettes packs per day: 1 second hand exposure: Yes alcohol intake: never substance use type: denies use current occupational status: employed Travel in the last 8 weeks: None household members: family housing: house current occupation: [employer] current occupational exposures/hazards: No caffeine: No ROS Obtained: Yes All systems reviewed & no additional complaints except as documented Constitutional Constitutional: Reports system reviewed and no additional complaints, except as documented, Denies chills and Denies fever(s) Eyes Eyes: Denies eye discharge ENT Ears, Nose, Mouth, and Throat: Denies dysphagia, Denies sore throat and Denies throat swelling Cardiovascular Cardiovascular: Denies chest pain and Denies dyspnea Respiratory Respiratory: Denies chest congestion, Denies cough and Denies dyspnea Gastrointestinal Gastrointestingal: Denies abdominal pain, constipation, diarrhea, dysphagia, nausea or vomiting Genitourinary Female Genitourinary: Reports as per HPI, Reports dysuria, Reports urinary frequency, Denies urinary incontinence, Reports urinary hesitancy and Reports urinary urgency Musculoskeletal Musculoskeletal: Denies arthralgias and Reports back
[2023-06-05 10:56] VITALS: BP 141/90; PULSE 107; RESP 18; TEMP 36.8; O2SAT 97
[2023-06-05 16:15] LABS: Microscopic, Urine URINE MICROSCOPIC (MICROSCOPIC)
[2023-06-05 16:25] LABS: Appearance,Urine SL CLOUDY (Clear); Bilirubin,Urine Negative (Negative); Blood, Urine 1+ (Negative); Color,Urine YELLOW (Yellow); Glucose,Urine (UA) Negative (Negative); Ketones,Urine Negative (Negative); Leukocyte Esterase,Urine 2+ (Negative); Nitrate,Urine POSITIVE (Negative); PH,Urine 5.5 (5.0-8.5); Protein,Urine Negative (Negative); Specific Gravity, Urine 1.025 (1.005-1.030); Urobilinogen,Urine 0.2 EU/dl (0.2)
[2023-06-05 16:47] LABS: Bacteria,Urine Trace /lpf; RBC,Urine Occasional #/hpf (0-3); WBC,Urine 20-50 #/hpf (0-3)
== END 2023-06-05 10:58 | disposition home or self-care (01) ==
PROVIDERS: Emergency Provider Nurse Practitioner Family; PCP Nurse Practitioner Family
DX: N39.0 Urinary tract infection, site not specified (principal); M54.59 Other low back pain; F17.210 Nicotine dependence, cigarettes, uncomplicated; B96.29 Other Escherichia coli [E. coli] as the cause of diseases classified elsewhere
CPT/HCPCS: 81001; 87086; 87088; 87186; 99212; 99214; G0463

== ENCOUNTER 2024-01-16 13:11 | Outpatient (CLI) | payer OTHER, SELFPAY ==
--- NOTE | 2024-01-16 13:15 | MM_ITS ---
PROCEDURE INFORMATION: Exam: MG Bilateral Screening 3D Mammography Exam date and time: 01/16/2024 1:08 PM Age: 48 years old Clinical indication: Screening examination TECHNIQUE: Imaging protocol: Bilateral Screening tomosynthesis and 2D mammography including computer-aided detection (CAD) when performed. COMPARISON: 1. MG MM DIG MAMM DX UNILAT LT CAD 02/05/2021 1:01 PM 2. MG MM DIG SCREENING MAMM BI W/CAD 01/12/2021 10:23 AM FINDINGS: MAMMOGRAPHY: Breast composition: The breasts are heterogeneously dense, which may obscure small masses. Mass: None. Architectural distortion: None. Calcifications: No suspicious calcifications. Asymmetric density: None. Skin thickening: None. Axillary adenopathy: None. IMPRESSION: No mammographic evidence of malignancy. Annual screening is recommended unless otherwise clinically indicated. ASSESSMENT: BI-RADS Category 1: Negative
== END 2024-01-16 23:59 ==
LOC: RAD 13:12
PROVIDERS: PCP Internal Medicine Adolescent Medicine; Visit Provider Nurse Practitioner Family
DX: Z12.31 Encounter for screening mammogram for malignant neoplasm of breast (principal)
CPT/HCPCS: 77063; 77067

== ENCOUNTER 2024-02-13 10:32 | Outpatient (CLI) | payer OTHER, SELFPAY ==
[2024-02-13 10:49] LABS: Basophils # 0.1 K/mm3 (0-0.2); Basophils % 1.5 % (0.1-2.0); Eosinophils # 0.1 K/mm3 (0.0-0.4); Eosinophils % 1.7 % (0.1-12.0); Hematocrit 44.9 % (37.0-47.0); Hemoglobin 14.6 g/dL (12.2-16.2); Lymphocytes # 1.5 K/mm3 (0.7-4.5); Lymphocytes % 27.6 % (10-50); Mean Corpuscular HGB Conc 32.6 g/dL (31.8-35.4); Mean Corpuscular Hemoglobin 30.3 pg (27.0-31.2); Mean Corpuscular Volume 92.9 fl (81-99); Mean Platelet Volume 7.8 fl (7.4-10.4); Monocytes # 0.4 K/mm3 (0.1-1.0); Monocytes % 6.7 % (1.7-9.3); Neutrophils # 3.3 K/mm3 (1.8-7.8); Neutrophils % 62.6 % (37.0-80.0); Platelet Count 236 K/mm3 (142-424); Red Blood Count 4.83 M/mm3 (4.20-5.40); Red Cell Distribution Width 16.1 % (11.5-17.5); White Blood Count 5.3 K/mm3 (4.8-10.8)
[2024-02-13 11:55] LABS: Alanine Aminotransferase 23 U/L (12-78); Albumin Level 4.2 g/dl (3.5-5.0); Albumin/Globulin Ratio 1.6 (1.1-1.8); Alkaline Phosphatase 82 U/L (38-126); Anion Gap 9.3 mEq/L (5-15); Aspartate Amino Transferase 31 U/L (14-36); Bilirubin,Total 0.4 mg/dl (0.2-1.3); Blood Urea Nitrogen 11 mg/dl (7-17); Calcium 9.1 mg/dl (8.4-10.2); Carbon Dioxide 28 mmol/L (22.0-30.0); Chloride 107 mmol/L (98-107); Chol/HDL Ratio 3.6 (1-3.5); Cholesterol 174 mg/dl (140-200); Estimated Glomerular Filt Rate 132 ml/min (>60); GFR (African American) 159 ML/MIN (>60); Globulin 2.7 g/dL (1.3-3.2); Glucose 91 mg/dl (74-100); HDL Cholesterol 49 mg/dl (40-60); Potassium 4.3 mmoL/L (3.5-5.1); Sodium 140 mmol/L (136-145); Total Protein,Serum 6.9 g/dl (6.3-8.2); Triglycerides 152 mg/dl (30-150); VLDL Cholesterol 30 mg/dL (0-40)
[2024-02-13 12:13] LABS: 25-OH Vitamin D, Total 53.5 ng/mL (30-100)
[2024-02-13 12:32] LABS: Iron 98 ug/dL (37-170)
[2024-02-13 12:42] LABS: Total Iron Binding Capacity 351 ug/dL (265-497)
[2024-02-13 12:44] LABS: Direct LDL Cholesterol 85.64 mg/dL (100-129)
[2024-02-13 13:09] LABS: Ferritin 12.9 ng/ml (6.24-137)
== END 2024-02-13 23:59 ==
LOC: LAB 10:32
PROVIDERS: PCP Nurse Practitioner Family; Visit Provider Nurse Practitioner Family
DX: E78.2 Mixed hyperlipidemia (principal); D50.9 Iron deficiency anemia, unspecified; E55.9 Vitamin D deficiency, unspecified; Z68.1 Body mass index [BMI] 19.9 or less, adult
CPT/HCPCS: 36415; 80053; 80061; 82306; 82728; 83540; 83550; 85025

== ENCOUNTER 2025-01-18 14:21 | Outpatient (CLI) | payer OTHER, SELFPAY ==
--- NOTE | 2025-01-18 14:23 | MM_ITS ---
PROCEDURE INFORMATION: Exam: MG Bilateral Screening 3D Mammography Exam date and time: 01/18/2025 2:31 PM Age: 49 years old Clinical indication: Screening examination TECHNIQUE: Imaging protocol: Bilateral Screening tomosynthesis and 2D mammography including computer-aided detection (CAD) when performed. COMPARISON: 1. MG MM DIG SCREENING MAMM BI W/CAD 01/16/2024 1:08 PM 2. MG MM DIG MAMM DX UNILAT LT CAD 02/05/2021 1:01 PM FINDINGS: MAMMOGRAPHY: Breast composition: The breasts are heterogeneously dense, which may obscure small masses. Mass: No suspicious masses. Architectural distortion: None. Calcifications: No suspicious calcifications. Asymmetric density: None. Skin thickening: None. Axillary adenopathy: None. IMPRESSION: No mammographic evidence of malignancy. Annual screening is recommended unless otherwise clinically indicated. ASSESSMENT: BI-RADS Category 1: Negative.
== END 2025-01-18 23:59 | disposition home or self-care (01) ==
LOC: RAD 14:22
PROVIDERS: PCP Nurse Practitioner Family; Visit Provider Nurse Practitioner Family
DX: Z12.31 Encounter for screening mammogram for malignant neoplasm of breast (principal)
CPT/HCPCS: 77063; 77067